=== PATIENT | male | born 1950 | race Caucasian/White ===

== ENCOUNTER 2018-07-13 10:20 | Emergency (ER) | payer OTHER ==
[~2018-07-13] VITALS: Ht 162.6 cm; Wt 69.4 kg
[2018-07-13 10:37] VITALS: Ht 162.6 cm; Wt 69.4 kg
[2018-07-13 11:31] LABS: microscopic required? NO
[2018-07-13 11:42] LABS: BASOPHIL % 0.7 % (0-2); PLATELET COUNT 243 x10^3mcL (130-400); RED CELL DISTRIBUTION WIDTH 13.2 % (11.5-14.5)
[2018-07-13 11:42] LABS: urine erythrocyte NEGATIVE (NEGATIVE)
[2018-07-13 11:52] LABS: AMPHETAMINE QUAL UR NONE DETECTED (See below)
[2018-07-13 12:06] LABS: CALCIUM 9.5 mg/dL (8.5-10.1); CARBON DIOXIDE 24.9 mmol/L (21-32); CHLORIDE SERUM 101 mmol/L (98-107); CREATININE SERUM 0.8 mg/dL (0.7-1.3); GFR1 > 60 mL/min; GLUCOSE SERUM 167 mg/dL (74-106); POTASSIUM SERUM 4.4 mmol/L (3.5-5.1); SODIUM SERUM 137 mmol/L (136-145)
[2018-07-13 12:18] LABS: ALKALINE PHOSPHATASE 57 U/L (46-116); ALT/SGPT 22 U/L (16-63); AMYLASE 33 U/L (25-115); AST/SGOT 18 U/L (15-37); BILIRUBIN TOTAL 0.64 mg/dL (0.20-1.00); CHOLESTEROL 152 mg/dL (<200); HDL CHOLESTEROL 54 mg/dL (40-60); LIPASE 94 IU/L (73-393); MAGNESIUM 2.1 mg/dL (1.8-2.4); T4(THYROXINE) 6.5 ug/dL (4.7-13.3)
[2018-07-13 12:33] LABS: TOTAL PROTEIN, SERUM 8.3 g/dL (6.4-8.2)
[2018-07-13 15:01] VITALS: BP 156/65
== END 2018-07-13 15:01 | disposition home or self-care (01) ==
LOC: ED 10:20
PROVIDERS: Emergency Medicine
DX: R53.1 Weakness (principal); E11.9 Type 2 diabetes mellitus without complications; K02.9 Dental caries, unspecified; I10 Essential (primary) hypertension; G40.909 Epilepsy, unspecified, not intractable, without status epilepticus; B35.6 Tinea cruris
CPT/HCPCS: 82962; G0480; J3490

== ENCOUNTER 2019-03-04 15:39 | Emergency (ER) | payer OTHER ==
[~2019-03-04] VITALS: Ht 157.5 cm; Wt 64.9 kg
[2019-03-04 15:52] VITALS: Ht 157.5 cm; Wt 64.9 kg
[2019-03-04 21:00] VITALS: BP 114/72
== END 2019-03-04 21:00 | disposition home or self-care (01) ==
LOC: ED 15:39
DX: S01.01XA Laceration without foreign body of scalp, initial encounter (principal); S13.9XXA Sprain of joints and ligaments of unspecified parts of neck, initial encounter; I10 Essential (primary) hypertension; E11.9 Type 2 diabetes mellitus without complications; W17.89XA Other fall from one level to another, initial encounter; Y93.89 Activity, other specified; Y92.89 Other specified places as the place of occurrence of the external cause; Y99.8 Other external cause status
CPT/HCPCS: 90715; J2001; Q0092

== ENCOUNTER 2019-03-12 17:02 | Emergency (ER) | payer OTHER ==
[~2019-03-12] VITALS: Ht 160 cm; Wt 65.8 kg
[2019-03-12 17:08] VITALS: BP 130/71; Ht 160 cm; Wt 65.8 kg
== END 2019-03-12 19:47 | disposition home or self-care (01) ==
LOC: ED 17:02
DX: S01.01XD Laceration without foreign body of scalp, subsequent encounter (principal); I10 Essential (primary) hypertension; E11.9 Type 2 diabetes mellitus without complications; Z86.73 Personal history of transient ischemic attack (TIA), and cerebral infarction without residual deficits; W01.0XXD Fall on same level from slipping, tripping and stumbling without subsequent striking against object, subsequent encounter
CPT/HCPCS: 82962